=== PATIENT | female | born 1940 | race African-American/Black ===

== ENCOUNTER 2020-01-15 16:44 | Emergency (ER) | payer OTHER ==
[~2020-01-15] VITALS: Ht 162.6 cm; Wt 55.8 kg
[2020-01-15] MEDS ORDERED: MOBIC7.5 MG PO (18:00)
[2020-01-15 18:17] VITALS: BP 152/74
== END 2020-01-15 18:02 | disposition home or self-care (01) ==
LOC: ER 16:44
DX: M25.561 Pain in right knee (principal); J44.9 Chronic obstructive pulmonary disease, unspecified; F17.210 Nicotine dependence, cigarettes, uncomplicated; X50.1XXA Overexertion from prolonged static or awkward postures, initial encounter; Y93.89 Activity, other specified; Y92.89 Other specified places as the place of occurrence of the external cause; Y99.8 Other external cause status

== ENCOUNTER 2020-02-27 16:24 | Inpatient (IN) | payer OTHER ==
[~2020-02-27] VITALS: Ht 162.6 cm; Wt 5.4 kg
[~2020-02-27 16:24] MED LIST: MOBIC7.5 MG PO
[2020-02-27 16:25] VITALS: BP 107/73
[2020-02-27 16:58] LABS: ABSOLUTE NEUTROPHILS 6.6 thou/uL (1.4-8.2); BASOPHILS 0.3 % (0.0-2.0); EOSINOPHILS 0.2 % (0.0-3.0); HEMATOCRIT 31.7 % (37.0-47.0); HEMOGLOBIN 10.4 gm/dL (12.0-15.0); LYMPHOCYTES 11.7 % (24.0-44.0); MCH 30.1 pg (26.0-34.0); MCHC 32.8 g/dL (28.0-37.0); MCV 91.9 fL (80.0-100.0); MONOCYTES 10.2 % (1.0-8.0); PLATELET COUNT 200 thou/uL (150-400); POLYS 77.6 % (36.0-66.0); RBC 3.45 mil/uL (4.20-5.00); RDW 16.1 % (10.5-14.5); WBC 8.5 thou/uL (4.0-11.0)
[2020-02-27 17:04] LABS: CREATININE 1.3 mg/dL (0.6-1.0)
[2020-02-27 17:10] LABS: DIRECT BILIRUBIN 0.2 mg/dL (<0.1-0.2); TOTAL BILIRUBIN 0.6 mg/dL (0.2-1.0); TOTAL PROTEIN 7.6 g/dL (6.4-8.2)
[2020-02-27 19:26] LABS: URINE BILIRUBIN NEGATIVE (Negative); URINE BLOOD NEGATIVE (Negative); URINE COLOR YELLOW; URINE GLUCOSE-RANDOM* NEGATIVE (Negative); URINE KETONES NEGATIVE (Negative); URINE LEUKOCYTES-REFLEX NEGATIVE (Negative); URINE NITRITE-REFLEX NEGATIVE (Negative); URINE PROTEIN (DIPSTICK) 1+ (Negative); URINE SPECIFIC GRAVITY >= 1.030 (1.005-1.035)
[2020-02-27 19:27] LABS: URINE CLARITY CLEAR
[2020-02-27 19:34] LABS: BACTERIA-REFLEX 1-9 Few /HPF (None Seen); CASTS None Seen /LPF (None Seen); CRYSTALS None Seen /LPF (None Seen); SQUAMOUS 0-3 Few /LPF (0-3); URINE RBC None Seen /HPF (0-2); URINE WBC-REFLEX 0-5 Rare /HPF (0-5)
[2020-02-28 05:24] LABS: HEMATOCRIT 29.9 % (37.0-47.0); HEMOGLOBIN 9.5 gm/dL (12.0-15.0); MCH 29.3 pg (26.0-34.0); MCHC 31.9 g/dL (28.0-37.0); MCV 91.9 fL (80.0-100.0); RBC 3.25 mil/uL (4.20-5.00); RDW 16.2 % (10.5-14.5); WBC 7.7 thou/uL (4.0-11.0)
[2020-02-28 05:30] LABS: CREATININE 0.9 mg/dL (0.6-1.0)
--- NOTE | 2020-02-28 10:12 | EKG ---
[facility] [address] [place] [address] ELECTROCARDIOGRAM REPORT Name: YOKO CALHOUN Room #: 170-15 ADM IN M.R.#: [id number] Admission: 02/27/20 Attend Phys: Jeovanny Cheng MD Discharge: Date of : 36 Report #: [id number] THIS REPORT FOR: cc: León Leigh MD, Kirk D. 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 : 1940 Requested By: Jeovanny Cheng Order Number: [id number] MD: Eddie Mujica Measurements Intervals [place] Rate: 111 P: 40 NM: 145 QRS: -40 QRSD: 88 T: 4 QT: 322 QTc: 438 Interpretive Statements Sinus tachycardia Left axis deviation Abnormal R-wave progression, early transition Baseline wander in lead(s) V6 No previous ECG available for comparison Electronically Signed On 02-28-2020 10:12:27 [employer] by Eddie Mujica [email or web address] <ELECTRONICALLY SIGNED> By: Eddie Mujica MD, FAC 02/28/20 101 41 41 Eddie Mujica MD, [facility] /EPI
[2020-02-28 12:00] VITALS: BP 121/67
--- NOTE | 2020-02-28 12:38 | NUR ---
Assumed care at 1200, pt A&O, VSS, provided meal, call light within reach.
[2020-02-28 16:22] VITALS: BP 121/67
[2020-02-28 16:42] VITALS: BP 127/80
[2020-02-28 16:45] VITALS: BP 147/91
[2020-02-28] MEDS ORDERED: PERCOCET 10-321 EAC1 PO (18:00)
--- NOTE | 2020-02-28 18:20 | NUR ---
assumed care 1635. pt is ax0 x4 but is forgetful. pt complains of back pain and was given pain medication. pt complains of slight soa but wasnt wearing nasal canal. pt is wearing nasal canal now. call light within reach. called pharmacy to get home medication due to pt not remembering what medications that she is taking at home. [facility] pharmacy on file said prescription was not filled for 2 years ago. Will call son and get home medication. IV is intact without redness or swelling. pt denies nausea, vomitting.
[2020-02-28 19:10] VITALS: BP 136/76
[2020-02-29 03:28] VITALS: BP 139/85
--- NOTE | 2020-02-29 06:17 | NUR ---
ASSUMED PT CARE AT 1900.PT ALERT AND CONFUSED.PT CONSATNTLY GETTING OUT OF BED WITHOUT ASSISTANCE.PT MOVED CLOSER TO THE NURSING STATION FOR HER SAFETY.PT'S FAMILY NOTIFIED.PT VERY RESTLESS AND UNABLE TO SLEEP.MAINTENANCE OF WAY SUPERINTENDENT ON DUTY NOTIFIED,ORDER NOTED AND CARRIED OUT.MED NOT EFFECTIVE.PT WAS UP ALL NIGHT VERY IMPULSIVE.PT ON HER BED AT THIS TIME.CALL LIGHT WITHIN REACH.
[2020-02-29 08:15] VITALS: BP 156/85
[2020-02-29] MEDS ORDERED: PROAIR HFA8.5 GM INH (11:31)
[2020-02-29] MEDS ORDERED: PREDNISONE 10 M10 MG PO (11:31)
--- NOTE | 2020-02-29 11:31 | NUR ---
PT CARE ASSUMED AT 0700. A&ORIENTED TO SELF. PT VERY IMPULSIVE AND REQUESTING TO SMOKE. VERY PLEASANT. ONCE SON CAME TO BEDSITE PT BECAME MUCH MORE SETTLE. SURGERY CLEARED PT TO DISCHARGE. IV REMOVED. PT ON 2L AT HOME BUT REFUSING TO KEEP NASAL CANULLA ON. VERY HIGH FALL RISK. FALL PROTOCOL IN PLACE. CALL LIGHT IN REACH. WILL CONTINUE TO MONITOR.
[2020-02-29 11:51] VITALS: BP 156/85
== END 2020-02-29 12:23 | disposition home or self-care (01) | DRG 189 ==
LOC: ER 16:24 → EROBS 21:57 → 4S 02-28 16:42
PROVIDERS: Nurse Practitioner; ADMIT Internal Medicine; ATTEND Internal Medicine
DX: J96.01 Acute respiratory failure with hypoxia (principal); N17.9 Acute kidney failure, unspecified; G89.29 Other chronic pain; M54.9 Dorsalgia, unspecified; E78.5 Hyperlipidemia, unspecified; K80.20 Calculus of gallbladder without cholecystitis without obstruction; I95.9 Hypotension, unspecified; K59.00 Constipation, unspecified; J43.9 Emphysema, unspecified; R91.1 Solitary pulmonary nodule; I71.4 Abdominal aortic aneurysm, without rupture; D64.9 Anemia, unspecified; F17.210 Nicotine dependence, cigarettes, uncomplicated; Z20.828 Contact with and (suspected) exposure to other viral communicable diseases; Z79.899 Other long term (current) drug therapy; Z86.73 Personal history of transient ischemic attack (TIA), and cerebral infarction without residual deficits; I25.2 Old myocardial infarction; Z90.710 Acquired absence of both cervix and uterus; Z80.0 Family history of malignant neoplasm of digestive organs
CPT/HCPCS: 10102

== ENCOUNTER 2021-06-02 20:53 | Inpatient (IN) | payer OTHER ==
[~2021-06-02] VITALS: Ht 162.6 cm; Wt 53.3 kg
[~2021-06-02 20:53] MED LIST changes: +CLOPIDOGREL75 MG PO; +METOPROLOL SUCC50 MG PO; +NEURONTIN 300M300 M2 PO; +PERCOCET 10-321 EAC1 PO; +PREDNISONE 10 M10 MG PO; +PROAIR HFA8.5 GM INH; +ST. JOSEPH ASPI81 M1 PO; +VITAMIN D350 MC3 PO; +ZOCOR 20 MG TAB20 M1 PO
[2021-06-02 21:08] VITALS: BP 166/91
[2021-06-02 21:29] LABS: HEMATOCRIT 37.9 % (37.0-47.0); HEMOGLOBIN 12.4 gm/dL (12.0-15.0); MCH 30.5 pg (26.0-34.0); MCHC 32.6 g/dL (28.0-37.0); MCV 93.5 fL (80.0-100.0); RBC 4.05 mil/uL (4.20-5.00); WBC 8.3 thou/uL (4.0-11.0)
[2021-06-02 21:37] LABS: CALCIUM 10.9 mg/dL (8.5-10.1); CREATININE 0.7 mg/dL (0.6-1.0); POTASSIUM 3.2 mmol/L (3.5-5.1)
[2021-06-02 21:47] LABS: ALBUMIN 3.7 g/dL (3.4-5.0); TOTAL BILIRUBIN 0.4 mg/dL (0.2-1.0)
[2021-06-03] VITALS (10 sets, daily range): BP systolic 126–172; BP diastolic 79–106
--- NOTE | 2021-06-03 06:00 | NUR ---
Admission assessments and history completed. Care plam initiated. High fall risk, fall precautions in place. SCD's applied.
--- NOTE | 2021-06-03 06:05 | NUR ---
Cardiology consult with Dr. Hampton, left message with answering service.
[2021-06-03 06:14] LABS: HEMATOCRIT 35.6 % (37.0-47.0); MCH 31.5 pg (26.0-34.0); MCHC 33.8 g/dL (28.0-37.0); MCV 93.1 fL (80.0-100.0); RBC 3.83 mil/uL (4.20-5.00); RDW 14.9 % (10.5-14.5)
[2021-06-03 06:41] LABS: CHOLESTEROL 218 mg/dL (<200); HDL CHOLESTEROL 72 mg/dL (>40); LDL CHOLESTEROL 122 mg/dL (<100); TRIGLYCERIDE 123 mg/dL (<150); VLDL 25 mg/dL (<40)
[2021-06-03 06:44] LABS: CALCIUM 10.6 mg/dL (8.5-10.1); CREATININE 0.7 mg/dL (0.6-1.0); MAGNESIUM 2.2 mg/dL (1.8-2.4)
[2021-06-03 06:45] LABS: SERUM ASSESSMENT Clear
--- NOTE | 2021-06-03 07:08 | EKG ---
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: roxanne : 1940 Requested By: Maria E López Order Number: [id number] MD: Eddie Mujica Measurements Intervals [place] Rate: 101 P: 51 ME: 162 QRS: -58 QRSD: 90 T: 35 QT: 384 QTc: 498 Interpretive Statements Sinus tachycardia Abnormal R-wave progression, late transition Consider left ventricular hypertrophy Compared to ECG 02/27/2020 17:42:19 Left-axis deviation no longer present Electronically Signed On 06-03-2021 7:07:55 [employer] by Eddie Mujica [email or web address] <ELECTRONICALLY SIGNED> By: Eddie Mujica MD, [facility] 06/03/21706 16 16 Eddie Mujica MD, FACC /EPI
--- NOTE | 2021-06-03 12:24 | 2DMMODE ---
[facility] [place] [address] 2 D/M-MODE ECHOCARDIOGRAM Name: YOKO CALHOUN Room #: 200-I ADM IN M.R.#: [id number] Admission: 06/03/21 Attend Phys: Juan J Astorga MD Discharge: Date of : 36 Report #: [id number] THIS REPORT FOR: cc: NO FAMILY PHYSICIAN or PCP NO FAMILY PHYSICIAN or PCP Eddie Mujiac MD [facility] ~ APPROVED REPORT Study performed: 06/03/2021 11:40:14 EXAM: Comprehensive 2D, Doppler, and color-flow Echocardiogram Patient Location: Bedside Room #: 200 Status: routine BSA: 1.56 HR: 78 bpm BP: 161/87 mmHg Rhythm: NSR Other Information Study Quality: Adequate Indications Dyspnea Chest Pain Hx: [place], CVA, COPD, HTN. 2D Dimensions RVDd: 35.47 mm IVSd: 13.76 (7-11mm) LVOT Diam: 19.13 (18-24mm) LVDd: 41.94 mm PWd: 8.64 (7-11mm) LVDs: 31.18 (25-40mm) Left Atrium: 28.15 (27-40mm) Aortic Root: 28.57 mm Volumes Left Atrial Volume (Systole) Single Plane 4CH: 53.48 mL Single Plane 2CH: 48.23 mL LA ESV Index: 35.00 mL/m2 Aortic Valve AoV Peak Reynold.: 1.60 m/s AO Peak Gr.: 10.24 mmHg LVOT Max P.09 mmHg [facility] [address] [address] 2 D/M-MODE ECHOCARDIOGRAM Name: YOKO CALHOUN Radha Room #: 200-I ADM IN ..#: [id number] Admission: 06/03/21 Attend Phys: Juan J Astorga MD Discharge: Date of : 36 Report #: [id number] LVOT Max V: 1.13 m/s MARLI Vmax: 2.02 cm2 Mitral Valve E/A Ratio: 0.6 MV Decel. Time: 213.85 ms MV E Max Reynold.: 0.61 m/s MV A Reynold.: 1.07 m/s MV PHT: 62.02 ms IVRT: 115.34 ms Pulmonary Valve PV Peak Reynold.: 0.94 m/s PV Peak Gr.: 3.53 mmHg Pulmonary Vein P Vein S: 0.48 m/s P Vein A: 0.33 m/s P Vein D: 0.31 m/s P Vein A Dur.: 121.1 msec P Vein S/D Ratio: 1.55 Tricuspid Valve TR Peak Reynold.: 2.60 m/s RAP Estimate: 5.00 mmHg TR Peak Gr.: 27.12 mmHg PA Pressure: 32.00 mmHg Left Ventricle The left ventricle is normal size. Questionable regional wall motion abnormalities are noted. Mild concentric left ventricular hypertrophy. Left ventricular systolic function is normal. LVEF is 55%. Mild diastolic dysfunction is present (impaired relaxation pattern). Right Ventricle The right ventricle is normal size. The right ventricular systolic function is normal. Atria Left atrium is mildly dilated. The right atrium size is normal. Aortic Valve The aortic valve is normal in structure; midly calcified. No aortic regurgitation is present. There is no aortic valvular stenosis. Mitral Valve Mitral valve leaflets are mildly thickened. Mild mitral annular [facility] [address] [place] [address] 2 D/M-MODE ECHOCARDIOGRAM Name: YOKO CALHOUN Room #: 200-I ADM IN .R.#: [id number] Admission: 06/03/21 Attend Phys: Juan J Astorga MD Discharge: Date of : 36 Report #: [id number] calcification. Mild mitral regurgitation. No evidence of mitral valve stenosis. Tricuspid Valve The tricuspid valve is normal in structure. Mild tricuspid regurgitation. Estimated PAP is 32mmHg. Pulmonic Valve The pulmonary valve is normal in structure. Trace pulmonic regurgitation. Great Vessels The aortic root is normal in size. Ascending aorta is not well visualized. IVC is normal in size and collapses >50% with inspiration. Pericardium There is no pericardial effusion. <Conclusion> Normal left ventricular size with mild concentric hypertrophy Ejection fraction 55%, no obvious segmental wall motion normality Grade 1 diastolic dysfunction Normal right ventricle size/function Mild left atrial enlargement Normal aortic valve structure and function Mild mitral valve insufficiency Mild tricuspid valve insufficiency Pulmonary systolic pressure estimated 32 mmHg No pericardial effusion Normal aortic root size. <ELECTRONICALLY SIGNED> By: Eddie Mujica MD, FACC 06/03/21 122 22 22 Eddie Mujica MD, FACC /INF
--- NOTE | 2021-06-03 15:28 | NUR ---
PT IS AXOX4, COOPERATIVE, SAD; VS SBP 160s, AFEBRILE, SR ON THE MONITOR. PT HAS BEEN IN A SAD MOOD THROUGHOUT THE DAY, TEARFUL. PT FAMILY AT THE BEDSIDE. PT TROPONIN TRENDING DOWN; ECHO COMPLETED. CARDIOLOGY CONSULTED. PT EDUCATION COMPLETED ON CONTROLLING BP. POC IS TO D/C WITH F/UP IN SEVERAL WEEKS WITH CARDIOLOGY AND OWN PCP. COMMUNICATED UNDERSTANDING. NO CONCERNS AT THIS TIME.
[2021-06-04 07:08] LABS: GLYCOHEMOGLOBIN (HGB A1C) 5.7 % (4.8-5.6)
== END 2021-06-03 15:31 | disposition home or self-care (01) | DRG 280 ==
LOC: ER 20:53 → EROBS 06-03 00:33 → 2N 06-03 02:40
PROVIDERS: Nurse Practitioner Family; ADMIT Internal Medicine; ATTEND Internal Medicine
DX: I21.4 Non-ST elevation (NSTEMI) myocardial infarction (principal); R65.11 Systemic inflammatory response syndrome (SIRS) of non-infectious origin with acute organ dysfunction; J44.9 Chronic obstructive pulmonary disease, unspecified; I16.0 Hypertensive urgency; I25.10 Atherosclerotic heart disease of native coronary artery without angina pectoris; I10 Essential (primary) hypertension; E87.6 Hypokalemia; M48.00 Spinal stenosis, site unspecified; F17.210 Nicotine dependence, cigarettes, uncomplicated; R51.9 Headache, unspecified; F43.21 Adjustment disorder with depressed mood; G89.29 Other chronic pain; M54.9 Dorsalgia, unspecified; Z20.822 Contact with and (suspected) exposure to COVID-19; Z79.899 Other long term (current) drug therapy; Z79.82 Long term (current) use of aspirin; I25.2 Old myocardial infarction; Z86.73 Personal history of transient ischemic attack (TIA), and cerebral infarction without residual deficits; Z82.49 Family history of ischemic heart disease and other diseases of the circulatory system; Z71.6 Tobacco abuse counseling; K21.9 Gastro-esophageal reflux disease without esophagitis
CPT/HCPCS: 10081